=== PATIENT | female | born 1960 | race Caucasian/White ===

== ENCOUNTER 2020-07-17 21:36 | Emergency (ER) | payer BC ==
[2020-07-17] MEDS ORDERED: LIDOCAINE 1%/EPINEPHRINE INJ 20 ML VIAL INJ ONE (21:59)
--- NOTE | 2020-07-17 22:04 | ER Document Report ---
ED Wound - General Stated Complaint: FALL Time Seen by Provider: 07/17/20 21:52 Primary Care Provider: TRIXIE AL MD [Primary Care Provider] - Follow up as needed Notes: Patient is a 59-year-old female who comes emergency department for chief complaint of a fall at home just prior to arrival. Patient comes by EMS, patient has a wound bleeding from the left lateral part of the forehead just above the left eyebrow. Patient states she does not remember falling, told you if he was in the other room when he heard a loud thump. Patient has been drinking alcohol tonight and patient admits that she drink "too much". Patient denies recreational drugs, she is not on a blood thinner, only past medical history reported is hypertension. Tetanus reportedly up-to-date. EMS reports that her did not report that she passed out, she has not had any vomiting, she is not had any other injuries. Past Medical History - General Information source: Patient, Relative - - Social History Smoking Status: Never Smoker Frequency of alcohol use: Heavy Drug Abuse: None Lives with: Family Family History: Reviewed & Not Pertinent - Past Medical History Cardiac Medical History: Reports: Hx Hypertension - Immunizations Immunizations up to date: Yes Hx Diphtheria, Pertussis, Tetanus Vaccination: Yes Review of Systems - Review of Systems Constitutional: No symptoms reported EENT: No symptoms reported Cardiovascular: No symptoms reported Respiratory: No symptoms reported Gastrointestinal: No symptoms reported Genitourinary: No symptoms reported Female Genitourinary: No symptoms reported Musculoskeletal: See HPI Skin: See HPI Hematologic/Lymphatic: No symptoms reported Neurological/Psychological: See HPI Physical Exam - Vital signs Vitals: Temp 98.6 F 07/17/20 21:36 - Notes Notes: GENERAL: Smells of alcohol, appears moderately intoxicated but still is cooperative and answers questions appropriately HEAD: Normocephalic. 3 cm horizontal and slightly irregular laceration just above and including the left eyebrow. No other signs of trauma. No signs of trauma. EYES: Pupils equal, round, and reactive to light. Extraocular movements intact. ENT: Oral mucosa moist, tongue midline. Oropharynx unremarkable. Airway patent. Nares patent, sinuses non-tender, ear canals unremarkable, TM's intact. NECK: Full range of motion. Supple. Trachea midline. No lymphadenopathy. LUNGS: Clear to auscultation bilaterally, no wheezes, rales, or rhonchi. No respiratory distress. Non-tender chest wall. HEART: Regular rate and rhythm. No murmur ABDOMEN: Soft, non-tender. Non-distended. No signs of trauma. No signs of trauma. EXTREMITIES: Moves all 4 extremities spontaneously. No signs of trauma. No edema, normal radial and dorsalis pedis pulses bilaterally. No cyanosis. BACK: no cervical, thoracic, lumbar midline tenderness. No saddle anesthesia, normal distal neurovascular exam. Moves all extremities in full range of motion. NEUROLOGICAL: Alert and oriented to place but not to events. Occasional slurring speech. Cranial nerves II through XII grossly intact. Strength 5/5 in all extremities. PSYCH: Normal affect, normal mood. SKIN: Warm, dry, normal turgor. No rashes or lesions noted. Alert, Course - Re-evaluation Re-evalutation: CT of the head and neck performed because of Nexus criteria and head injury with EtOH. These were negative for acute findings. Patient with alcohol intoxication, occasionally she asks the same question again, however she improved this time went on, she became more calm, she remained cooperative. Her neurological exam was unremarkable otherwise. No other signs of trauma. Wound repaired without difficulty. came to bedside and discussed with him care, precautions, monitoring, return precautions. He states understanding and agreement and states he is comfortable taking her home to monitor her at this time. Stable at time of discharge. - Vital Signs Vital signs: Temp Pulse Resp BP Pulse Ox 98.6 F 114 H 18 140/73 H 96 07/17/20 21:54 07/17/20 21:54 07/17/20 21:54 07/17/20 21:54 07/17/20 21:54 Procedures - Laceration/Wound Repair Left forehead/eyebrow Wound length (cm): 3 Wound's Depth, Shape: Irregular Laceration pre-procedure: Sterile PPE donned, Sterile drapes applied, Shur-Clens applied Anesthetic type: 1% Lidocaine w/epi Volume Anesthetic (mLs): 3 Wound explored: Clean, No foreign body removed Wound Repaired With: Sutures Suture Size/Type: 6:0, Ethilon Number of Sutures: 7 Layer Closure?: No Post-procedure NV exam normal: Yes Complications: No Discharge - Discharge Clinical Impression: Facial laceration Qualifiers: Encounter type: initial encounter Qualified Code(s): S01.81XA - Laceration wi thout foreign body of other part of head, initial encounter Head injury Qualifiers: Encounter type: initial encounter Qualified Code(s): S09.90XA - Unspecified injury of head, initial encounter Alcohol intoxication Qualifiers: Complication of substance-induced condition: with unspecified complication Qualified Code(s): F10.929 - Alcohol use, unspecified with intoxication, unspecified Condition: Stable Disposition: HOME, SELF-CARE Additional Instructions: The imaging of the head and neck do not show any concerning findings. Please follow head injury precautions listed below. The wound was repaired with sutures. Keep clean, clean with soap and water, dab dry, avoid soaking or scrubbing. You can apply thin film of topical antibiotic. Sutures need to be removed in 7 days at a medical facility. Return sooner for any concerning symptoms including signs of infection such as developing pain, swelling, redness, discolored discharge, fever, or any other concerning symptoms. Head Injury Precautions At this point, there is no evidence that your head injury is serious. Observation is necessary, however. Take only clear liquids for the first few hours, unless told otherwise by the doctor. If no pain medication was prescribed, you may take acetaminophen according to the directions on the bottle. Limit activity for the first 24 hours. During the first 24 hours, check to see approximately every two to three hours that the patient is easily arousable, responds normally, and can perform common tasks such as walking without difficulty. Contact your doctor or go to the hospital if any of the following things occur: Persistent vomiting, difficulty in arousing the patient, worsening or continued headache, or failure to improve as expected. Head injuries can cause symptoms that persist for a few days or even a few weeks. Post-Concussion Syndrome Post-concussion syndrome often follows a head injury. Dizziness, mild nausea, mild headache, trouble concentrating, and a general sense of "not being right" may persist for a week or two. This is a frequent complication of concussion. However, if the symptoms worsen, or new symptoms develop, you should be re- examined by the physician. There is no specific cure for post-concussion syndrome. You can take mild pain medication such as ibuprofen or acetaminophen. While you should not drive if you are dizzy, you can get back to your regular activities as quickly as the symptoms will allow. And while vigorous exercise may worsen the headache, mild physical activity often is helpful. Sitting and thinking about your symptoms will worsen them. If difficulties continue, you may need referral for special therapy to help you regain full mental function. Call the physician if you are worsening, or if symptoms are still present in one week. Report any new symptoms immediately. Forms: Return to Work Referrals: TRIXIE AL MD [Primary Care Provider] - Follow up as needed
--- NOTE | 2020-07-17 23:16 | RADIOLOGY REPORT (SQ) ---
EXAM DESCRIPTION: CT HEAD WITHOUT IV CONTRAST COMPLETED DATE/TME: 07/17/2020 21:58 CLINICAL HISTORY: 59 years, Female, head injury, ETOH COMPARISON: None. TECHNIQUE: 194 Images stored on PACS. All CT scanners at this facility use dose modulation, iterative reconstruction, and/or weight based dosing when appropriate to reduce radiation dose to as low as reasonably achievable (ALARA). [facility]: Dose Right [facility]: CareDose [facility]: Dose Right [facility]: Teradose 4D [facility]: D[facility] Lab LIMITATIONS: None. FINDINGS: The globes are intact. The paranasal sinuses and mastoid air cells are well aerated. No displaced or depressed skull fracture. No acute intracranial hemorrhage. CT is limited for evaluation of acute infarct. No CT evidence for large or territorial acute infarct. No mass or midline shift. A few hypodensities in the periventricular and subcortical white matter likely reflect minor small vessel ischemic change. No mass or midline shift IMPRESSION: No acute intracranial abnormality TECHNICAL DOCUMENTATION: Quality ID # [id number]: Final reports with documentation of one or more dose reduction techniques (e.g., Automated exposure control, adjustment of the mA and/or kV according to patient size, use of iterative reconstruction technique) copyright 2011 [employer]- All Rights Reserved
--- NOTE | 2020-07-17 23:18 | RADIOLOGY REPORT (SQ) ---
CT cervical spine without contrast on 07/17/2020 at 10:38 PM CLINICAL INDICATION: Head injury, EtOH, per protocol for mechanism of injury TECHNIQUE: Multiple axial images are obtained throughout the cervical spine without the administration of contrast. Sagittal and coronal reformatted images are also performed and reviewed. This exam was performed according to our departmental dose-optimization program, which includes automated exposure control, adjustment of the mA and/or kV according to patient size and/or use of iterative reconstruction technique. Total DLP is 244.66 mGy*cm. COMPARISON: None FINDINGS: There is reversal of the normal cervical lordosis. There is grade 1 spondylolisthesis at C3-4 and C4-5 secondary to degenerative facet disease. Degenerative facet disease is noted bilaterally but worse on the right in the mid to upper cervical spine. Degenerative disc disease is noted worse from C5 through C7. Reformatted images reveal otherwise normal alignment of the cervical spine. There is no prevertebral soft tissue swelling. There are no acute fracture lines. No definite disc herniation is noted. IMPRESSION: Degenerative changes with no acute abnormality.
[2020-07-18 00:23] VITALS: BP 130/71
== END 2020-07-18 00:21 | disposition home or self-care (01) ==
LOC: ER 21:36
DX: S01.81XA Laceration without foreign body of other part of head, initial encounter (principal); S01.112A Laceration without foreign body of left eyelid and periocular area, initial encounter; W19.XXXA Unspecified fall, initial encounter; Y93.89 Activity, other specified; Y92.000 Kitchen of unspecified non-institutional (private) residence as the place of occurrence of the external cause; M47.812 Spondylosis without myelopathy or radiculopathy, cervical region; I10 Essential (primary) hypertension; F10.129 Alcohol abuse with intoxication, unspecified
CPT/HCPCS: 99284; 70450; 72125; 12013; J3490